=== PATIENT | female | born 1950 | race Caucasian/White ===

== ENCOUNTER → 2017-10-01 | Outpatient (REF) | LOC: ZLAB.WCH 15:53 | DX: Z01.89 Encounter for other specified special examinations (principal) ==

== ENCOUNTER → 2019-01-06 | Outpatient (CLI) | payer MEDICARE, OTHER | LOC: COL.VAS 07:47 | DX: I70.1 Atherosclerosis of renal artery (principal); N17.9 Acute kidney failure, unspecified; R09.89 Other specified symptoms and signs involving the circulatory and respiratory systems ==

== ENCOUNTER → 2019-01-07 | Outpatient (CLI) | payer MEDICARE, OTHER | LOC: COL.VAS 08:37 | DX: I70.1 Atherosclerosis of renal artery (principal); N17.9 Acute kidney failure, unspecified; R09.89 Other specified symptoms and signs involving the circulatory and respiratory systems ==

== ENCOUNTER → 2019-03-06 | Outpatient (CLI) | payer MEDICARE, OTHER | LOC: COL.RAD 11:27 | DX: I77.9 Disorder of arteries and arterioles, unspecified (principal); I10 Essential (primary) hypertension | CPT/HCPCS: A9562; J1940 ==

== ENCOUNTER → 2019-03-11 | Outpatient (CLI) | payer MEDICARE, OTHER | LOC: COL.RAD 12:36 | DX: I73.9 Peripheral vascular disease, unspecified (principal) | CPT/HCPCS: A9562; J1940 ==

== ENCOUNTER 2019-05-01 14:08 | Observation (INO) | payer MEDICARE, OTHER ==
[~2019-05-01] VITALS: Ht 167.6 cm; Wt 58.9 kg
--- NOTE | 2019-05-01 15:04 | NUR ---
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 dr mcqueen at bedside, performs ultrasound of right femoral artery access site for evaluation of pseudoanuresym. orders received from dr mcqueen to place femstop at 85mmhg right at access site. femstop placed, distal pulses marked and pedal/posterior tibial pulses both 2+, cap refil 3 seconds. report given to ricky torres.
[2019-05-01] MEDS ORDERED: NAMENDA 10MG TA10 MG PO (16:07)
[2019-05-01] MEDS ORDERED: LIPITOR20 MG PO (16:08)
[2019-05-01] MEDS ORDERED: ARICEPT10 MG PO (16:08)
[2019-05-01] MEDS ORDERED: PLAVIX 75MG TAB75 MG PO (16:09)
[2019-05-01] MEDS ORDERED: LEXAPRO20 MG PO (16:09)
[2019-05-01] MEDS ORDERED: ASPIRIN 81M81 MG/TA2 PO (16:10)
[2019-05-01] MEDS ORDERED: MULTI VITAMINS1 TAB PO (16:10)
[2019-05-01 16:12] LABS: BASO % 0.7 % (0.0-2.0); EOS # 0.2 (0.0-0.7); EOS % 3.2 % (0-4.0); GRAN # 3.9 (1.4-6.5); GRAN % 65.6 % (42.2-75.2); HEMOGLOBIN 11.3 g/dl (12.5-16.0); LYMPH # 1.2 (1.2-3.4); LYMPH % 20.7 % (20.0-51.0); MEAN CELL VOLUME 88 fl (80.0-100.0); MEAN CORPUSCULAR HEMOGLOBIN 29 pg (27.0-31.0); MEAN CORPUSCULAR HGB CONC 33 g/dl (33.0-37.0); MEAN PLATELET VOLUME 11.5 fl (7.4-10.4); MONO # 0.6 (0.1-0.6); MONO % 9.3 % (1.7-9.3); PLATELET COUNT 188 K/mm3 (130-400); RED BLOOD COUNT 3.86 M/mm3 (4.10-5.30); REDCELL DISTRIBUTION WIDTH-CV 13.1 % (11.5-14.5)
[2019-05-01 16:15] LABS: CALCIUM 8.7 mg/dL (8.4-10.2); CREATININE, serum 1.23 (0.52-1.25); POTASSIUM 4.2 mmol/L (3.4-5.0)
[2019-05-01 17:29] VITALS: BP 157/69; PULSE 52; TEMP 98.6
--- NOTE | 2019-05-01 20:00 | NUR ---
Received report from BURKE Ruiz. Assessment complete. Alert and oriented. Pain rate at initial visit with pt tolerable, rate 5/10, to rt groin. Femostop in place, 85mmHg. In supine position. at bedside. Bruising observed around site to rt groin. Assisted pt to bedpan, pt remained in supine position. Needs met. Call light within reach.
[2019-05-01 20:28] VITALS: BP 153/64; PULSE 49; TEMP 97.5
--- NOTE | 2019-05-01 20:30 | NUR ---
At 1999, pt inform staff of pt increase in pain. Pain rate, 10/10, tearful. Femostop noted to be at 76-77mmHg, no bleeding observed, with bruising, pedal/posterior pulses 2+. Pt in supine position. Called Dr Peraza and updated MD. Orders to decrease pressure to 60mmHg and one time order of 50mg Tramadol. Orders carried out. Will monitor pt. at bedside. Call light within reach.
--- NOTE | 2019-05-01 21:05 | NUR ---
Upon entrance, pt appears to be without pain with eyes closed. No active bleeding observed. Pressure at 57mmHg. Pressure was released from femostop and informed pt to remain supine for additional 30 minutes for observation. At 2140, no active bleeding noted. Femostop removed, applies sterile guaze and tegaderm to site. Soft around site with bruising. Informed pt to notify staff or any bleeding or increase in pain. Will continue to monitor pt. at bedside. Call light within reach.
[2019-05-02] VITALS (7 sets, daily range): BP systolic 127–155; BP diastolic 55–72; PULSE 49–85; TEMP 98.1–98.9
--- NOTE | 2019-05-02 06:17 | NUR ---
Pt made no complaints during the night. Needs met. , Say, remained at bedside. Meds administered. Rt groin without drainage or swelling, denies pain, slight tenderness, dressing CDI. Meds administered. Call light within reach.
--- NOTE | 2019-05-02 06:40 | NUR ---
Report given to BURKE Ruiz.
--- NOTE | 2019-05-02 09:15 | NUR ---
PT COMPLAINING OF PAIN 10/10 AND IS TEARFUL AFTER ULTRASOUND. FENTANYL GIVEN AND TYLENOL. AT BEDSIDE, BED IN LOW POSITION, CALL LIGHT WITHIN REACH. FEMORAL SITE HAD BRUISING PRESENT. WILL REASSES PAIN IN 15 MINUTES. PT DID NOT REQUEST ANY OTHER ITEMS AT THIS TIME.
--- NOTE | 2019-05-02 13:52 | NUR ---
Plan: To return home with Say, as care support [phone]. patient listed Say as her EMR and as her DPOA. They reside in [facility]. Assess: SW met with patient with and family at her bedside. Patient allowed SW to discuss information in front of her . Patient denied the use of DM equipment, and reported that her PCP is Dr. Molina with upcoming appointments with providers on May 26 and , and June 10. patient reported that she gets her medications from [facility] with o concerns, and she declined receiving [facility] at this time. Action: Patient was educated about community resources.
--- NOTE | 2019-05-02 18:41 | NUR ---
PT APPEARS CONFUSED TO WHY SHE HAS THE SANDBAG ON HER LEG. kEEPS TRYING TO TAKE IT OFF, DENYING PAIN, ATE MOST OF HER DINNER, SITTING UP WITH AT BEDSIDE. TABLE AT BEDSIDE, CALL LIGHT WITHIN REACH, PT DENIES ANY OTHER NEEDS AT THIS TIME.
--- NOTE | 2019-05-02 19:00 | NUR ---
Received report from Gaby. Patient is awake, sitting on bed. With sandbag placed on her right groin. Noted to have bruises on her right groin. With INT on right AC. Patient denies any pain.
[2019-05-03 03:52] VITALS: BP 130/61; PULSE 53; TEMP 98.6
--- NOTE | 2019-05-03 05:54 | NUR ---
Patient denies any pain the whole shift. Sandbag still applied on her right groin. No other complains made. Will endorse to day shift nurse.
[2019-05-03 08:16] VITALS: BP 137/52; PULSE 56; TEMP 97.3
--- NOTE | 2019-05-03 10:30 | NUR ---
DISCHARGE EDUCATION PROVIDED. NO QUESTIONS VOICED. NURSE WENT TO REMOVE IV, NO IV LINE INTACT? UNSURE ABOUT WHAT HAPPENED WITH INT, NO NOTED BLEEDING TO AREA. PT AND WHERE ESCORTED JAZMÍN.
== END 2019-05-03 11:00 | disposition home or self-care (01) ==
LOC: COL.ER 14:08 → MEDICAL 14:10
PROVIDERS: Emergency Medicine; ADMIT Internal Medicine Cardiovascular Disease
DX: I72.4 Aneurysm of artery of lower extremity (principal); E78.5 Hyperlipidemia, unspecified; F17.210 Nicotine dependence, cigarettes, uncomplicated; I71.4 Abdominal aortic aneurysm, without rupture; N18.3 Chronic kidney disease, stage 3 (moderate); I12.9 Hypertensive chronic kidney disease with stage 1 through stage 4 chronic kidney disease, or unspecified chronic kidney disease; Z79.02 Long term (current) use of antithrombotics/antiplatelets; Z79.82 Long term (current) use of aspirin
CPT/HCPCS: G0378; J1644; J3010

== ENCOUNTER → 2019-05-26 | Outpatient (CLI) | payer MEDICARE, OTHER ==
[~2019-05-26] MED LIST: ARICEPT10 MG PO; ASPIRIN 81M81 MG/TA2 PO; LEXAPRO20 MG PO; LIPITOR20 MG PO; MULTI VITAMINS1 TAB PO; NAMENDA 10MG TA10 MG PO; PLAVIX 75MG TAB75 MG PO
== END ==
LOC: COL.RAD 13:09
DX: I71.4 Abdominal aortic aneurysm, without rupture (principal); I72.4 Aneurysm of artery of lower extremity; Z98.890 Other specified postprocedural states
CPT/HCPCS: Q9967